=== PATIENT | male | born 1960 | race Caucasian/White ===

== ENCOUNTER 2017-02-09 10:49 | Day surgery (SDC) | payer OTHER ==
--- NOTE | ~2017-02-09 | OR ---
ADMIT: 02/09/2017 RM/LOC: [facility] MR#: [id number] [address] [facility] [address] [place], [place] [address] HUSSEIN WHITE [address] [place], [place] [id number] Operative/Delivery Room Report SEX: M AGE: 56 : 1960 SURGERY DATE: 02/09/2017 SURGEON: Atul Butler MD PREOP DIAGNOSIS: Acute appendicitis. POSTOPERATIVE DIAGNOSIS: Acute gangrenous-appearing appendicitis. No evidence of perforation. PROCEDURE PERFORMED: Laparoscopic appendectomy. ANESTHESIA: General endotracheal with addition of Marcaine in the wounds postprocedure. ESTIMATED BLOOD LOSS: Less than 10 mL. DESCRIPTION OF PROCEDURE: After appropriate informed consent was obtained, the patient was brought to the operating room. General endotracheal anesthesia was induced. The patient's abdomen was prepped and draped in sterile fashion. A small infraumbilical incision was created. Veress needle introduced. The abdomen was insufflated with CO2. A 5 mm trocar was placed. Camera was introduced and the abdomen surveyed. He had obviously a little bit of purulent fluid in the right lower quadrant. Two additional ports were placed. The appendix was identified in a somewhat retrocecal position. Initially difficult to get exposure of this, also due to the loops of small bowel covering, but ultimately I was able to get the whole the appendix, obviously an acute appendicitis with some fibrinous debris around it. It did not appear to be perforated though. A small window was made through the appendiceal mesentery at the base of the appendix. Endo-LEXI stapler with 3.5 mm eleanor placed across the base of the appendix and fired. It took 2 additional loads of the Endo-LEXI stapler 2.5 mm eleanor to get across the ADMIT: 02/09/2017 RM/LOC: [facility] MR#: [id number] [address] [facility] [address] [place], [place] [address] HUSSEIN WHITE [address] [place] [address] Operative/Delivery Room Report SEX: M AGE: 56 : 1960 appendiceal mesentery. With the appendix freed up, it was placed in EndoCatch bag and brought out through the left lower quadrant port site. This was somewhat difficult just due to how large his appendix was. I had to extend that incision in order to get the appendix out. With the appendix freed up and removed, the port was reintroduced. The right lower quadrant and pelvis were then copiously irrigated and suctioned out. Everything appeared hemostatic. All the wounds were infiltrated with Marcaine. The left lower quadrant fascial defect was closed with a [id number] 0 Vicryl suture. The abdomen was next desufflated, ports removed, skin closed with 4-0 Monocryl in the subcuticular layer. Sterile dressings were applied. The patient tolerated the procedure well and was taken to the recovery room in stable condition. Atul Butler MD/ katarzyna JOB #: [id number] CC: Leonid York, Attending Physician Leonid York, Family Physician
--- NOTE | 2017-02-12 16:41 | ER ---
ADMIT: 02/09/2017 RM/LOC: [facility] MR#: [id number] [address] [facility] [address] [place], [place] [address] HUSSEIN WHITE [address] [facility] [address] [place] [address] Emergency Room Report SEX: M AGE: 56 : 1960 DATE: 02/09/2017 ADDENDUM: A 56-year-old white male coming in with abdominal pain. CT showed that he does have appendicitis, white count 16.5. I spoke with Dr. York, he will admit to short stay. CONDITION DISCHARGE: Serious but stable. Wilberto Petit MD/ corettal JOB #: [id number] CC: Leonid York MD, Attending Physician Leonid York MD, Family Physician
--- NOTE | 2017-03-11 10:44 | HP ---
ADMIT: 02/09/2017 RM/LOC: [facility] MR#: [id number] [address] [facility] [address] HUSSEIN WHITE [address] [place] [address] History and Physical SEX: M AGE: 56 : 1960 DATE OF SERVICE: 02/09/2017 ADDENDUM: This is a pleasant 56-year-old male patient, who had abdominal pain that started last night. It is localized to his right lower quadrant. He came into the ER, was evaluated. On CT scan, he was found to have what appears to be acute appendicitis. His exam and findings were consistent with that. On exam, his abdomen is somewhat obese, it is soft, but he is tender at right lower quadrant. Positive guarding. No masses are appreciated. ASSESSMENT: Acute appendicitis. PLAN: I have recommended proceeding with laparoscopic appendectomy. I have gone through risks and benefits of this procedure in depth with the patient. He does understand all this and agrees to proceed. Atul Butler MD/ katarzyna JOB #: [id number] CC: Leonid York, Attending Physician Leonid York, Family Physician
--- NOTE | 2017-03-11 10:44 | HP ---
ADMIT: 02/09/2017 RM/LOC: [facility] MR#: [id number] [address] [facility] [address] [place], [place] [address] HUSSEIN WHITE [address] [place] [address] History and Physical SEX: M AGE: 56 : 1960 DATE OF SERVICE: CHIEF COMPLAINT: Abdominal pain. HISTORY OF PRESENT ILLNESS: Hussein is a very pleasant 56-year-old male, who developed abdominal pain since yesterday. It has been getting progressively worse since then, and located more in the suprapubic pubic region of his abdomen and sharp in nature. He also felt nauseous last night and had multiple times emesis. He also felt flushed when this occurred, but he did not believe it was a real chills or night sweats. He denies any prior events, diarrhea, constipation, dark or bloody stools, or hematemesis. Because of the symptoms, he came to the Emergency Department for workup, which revealed acute appendicitis. PAST MEDICAL HISTORY: Significant for hypertension, hyperlipidemia, and coronary artery disease. PAST SURGICAL HISTORY: Right shoulder surgery. ALLERGIES: PENICILLIN TO WHICH HE DEVELOPS A RASH. MEDICATIONS: 1. Aspirin 81 mg. 2. Atorvastatin 40 mg. 3. Bumetanide 1 mg. 4. Bupropion extended release 300 mg. 5. Buspirone 15 mg. 6. Carvedilol 25 mg. 7. Carbamazepine 5 mg. 8. Doxepin 25 mg. 9. Fluticasone 50 mcg. 10.Folic acid 1 mg daily. 11.Ibuprofen 600 mg. 12.Lisinopril 10 mg. 13.Kwtp-[id number] minerals. 14.Potassium chloride 20 mEq. 15.Ropinirole 1 mg. 16.Spironolactone 25 mg. 17.Thiamine 100 mg. 18.Topiramate 50 mg. 19.Varenicline starter pack 0.5 mg. FAMILY HISTORY: Noncontributory. SOCIAL HISTORY: The patient is occasional alcohol user, and smokes about one and half pack every two days. He denies any illicit drug use. REVIEW OF SYSTEMS: CONSTITUTIONAL: The patient denies any fever, chills, or night sweats. The rest of comprehensive 10-point review of systems was ADMIT: 02/09/2017 RM/LOC: [facility] MR#: [id number] [address] [facility] [address] [place], [place] [address] HUSSEIN WHITE [address] [place] [address] History and Physical SEX: M AGE: 56 : 1960 performed and all other systems are negative. PHYSICAL EXAMINATION: GENERAL: The patient is in no acute distress. He is alert and oriented. HEENT: Head is normocephalic and atraumatic. EOMS are intact. Conjunctivae free of icterus, erythema, or pallor. Pinnae, free of deformities. Nose, midline. No tracheal deviation. NECK: Supple. SKIN: Negative for jaundice, clubbing, edema, pallor, or cyanosis. LUNGS: Clear to auscultation bilaterally. Normal respiratory effort. HEART: Regular rate and rhythm. No murmurs noted. Distal pulses intact. ABDOMEN: Soft and nondistended. Tender in suprapubic region. Positive Rovsing sign. Positive obturator sign. Negative psoas sign. Negative McBurney point tenderness. LABORATORY DATA: White blood cell count elevated at 16.5. DIAGNOSTIC IMAGING: CT of abdomen and pelvis revealed acute appendicitis with fecalith. ASSESSMENT: Acute appendicitis. PLAN: The plan is to have the patient undergo laparoscopic possible open appendectomy performed by Dr. Butler this afternoon. I discussed the risks, alternatives, benefits, and complications of the procedure to which the patient is in agreement of this plan. I had all his questions answered and would like to proceed. We will get him on the surgery schedule and go from there. CUAUHTEMOC Talamantes / Atul Butler MD / katarzyna JOB #: [id number] CC: Leonid York, Attending Physician Leonid York, Family Physician
== END 2017-02-09 16:00 | disposition home or self-care (01) ==
LOC: ER 10:49 → SSS 12:47
PROC: 0DTJ4ZZ Resection of Appendix, Percutaneous Endoscopic Approach (ICD-10-PCS; principal; 2017-02-09)
DX: K35.80 Unspecified acute appendicitis (principal); I10 Essential (primary) hypertension; E78.5 Hyperlipidemia, unspecified; I25.10 Atherosclerotic heart disease of native coronary artery without angina pectoris; Z88.0 Allergy status to penicillin; F17.210 Nicotine dependence, cigarettes, uncomplicated; Z98.890 Other specified postprocedural states